=== PATIENT | female | born 1990 | race African-American/Black ===

== ENCOUNTER 2017-06-09 14:16 | Emergency (ER) | payer BC, OTHER ==
[~2017-06-09] VITALS: Ht 162.6 cm; Wt 139.0 kg
[2017-06-09 14:29] VITALS: BP 99/56
[2017-06-09] MEDS ORDERED: BACITRACIN ZINC OINT UDPKT TOP ONE (15:15)
[2017-06-09] MEDS ORDERED: ACETAMINOPHEN 500MG TABLET PO ONE (15:15)
== END 2017-06-09 16:22 | disposition home or self-care (01) ==
LOC: ER 16:22
DX: T23.071A Burn of unspecified degree of right wrist, initial encounter (principal); V49.09XA Driver injured in collision with other motor vehicles in nontraffic accident, initial encounter; Y93.89 Activity, other specified; Y92.410 Unspecified street and highway as the place of occurrence of the external cause; Y99.8 Other external cause status
CPT/HCPCS: 99283